=== PATIENT | female | born 1980 | race African-American/Black ===

== ENCOUNTER 2021-01-23 14:14 | Emergency (ER) | payer OTHER, SELFPAY ==
--- NOTE | 2021-01-23 | ECG_ITS ---
Measurements Intervals [place] Rate: 74 P: 58 [place]: 169 QRS: 50 QRSD: 89 T: 43 QT: 380 QTc: 422 Interpretive Statements SINUS RHYTHM POSSIBLE LEFT ATRIAL ENLARGEMENT BASELINE WANDER- V4 BORDERLINE ECG Electronically Signed On 01-23-2021 14:54:53 CDT by Rene Driscoll D.O.
--- NOTE | ~2021-01-23 | XR_ITS ---
EXAMINATION: XR chest 2V EXAM DATE: 01/23/2021 14:38 INDICATION: Chest pain and tightness. Symptoms one day. TECHNIQUE: Frontal and lateral projections of the chest obtained and reviewed. There is no prior richar dy for comparison. FINDINGS: The lungs are clear. There are no pleural effusions. The cardiomediastinal silhouette is within normal limits. There is no pneumothorax suspected. The bones and soft tissues are unremarkab le. IMPRESSION: No acute cardiopulmonary findings. Reviewed, dictated and finalized at location A.
[2021-01-23 14:13] VITALS: PULSE 80; RESP 16; TEMP 36.7; O2SAT 98
[2021-01-23 14:16] VITALS: PULSE 74
[2021-01-23 14:31] LABS: Basophils Percent Auto 0.6 % (0.2-1.2); Eosinophils Absolute Auto 0.2 K/mm3 (0-0.3); Eosinophils Percent Auto 2.1 % (0-4.4); Hematocrit 32.5 % (37.0-47.0); Hemoglobin 10.5 g/dL (12.0-15.0); Immature Granulocyte Absolute 0.02 K/mm3 (0.00-0.031); Immature Granulocyte Percent A 0.3 % (0-0.5); Lymphocytes Absolute Auto 1.59 K/mm3 (0.9-3.2); Lymphocytes Percent Auto 22.6 % (18.3-44.2); Mean Corpuscular HGB Conc 32.3 g/dl (32-36); Mean Corpuscular Hemoglobin 27.2 pg (26-34); Mean Corpuscular Volume 84.2 fl (80-100); Mean Platelet Volume 11.6 fl (7.4-10.4); Monocytes Absolute Auto 0.4 K/mm3 (0.1-0.6); Monocytes Percent Auto 5.2 % (2.6-8.5); Neutrophils Absolute Auto 4.9 K/mm3 (1.3-6.7); Neutrophils Percent Auto 69.2 % (45.5-73.1); Platelet Count Result 229 k/mm3 (150-375); Red Blood Count 3.86 M/mm3 (4.2-5.4); Red Cell Distribution Width 13.9 % (11.5-14.5); White Blood Count 7.1 K/mm3 (4.5-10.0)
[2021-01-23 14:41] LABS: INR 0.9; Partial Thromboplastin Time 26.2 SECONDS (22.3-36.8); Prothrombin Time 12.5 Seconds (11.1-14.7)
[2021-01-23 15:00] LABS: Anion Gap 9 mmol/L (8-16); Blood Urea Nitrogen 11 mg/dL (7-17); Carbon Dioxide 24 mmol/L (22-30); Chloride 106 mmol/L (98-107); Estimated CRCL calculation 72 ml/min; Estimated Glomerular Filt Rate > 60; Glucose 99 mg/dL (65-110); Potassium 3.7 mmol/L (3.4-5.0); Sodium 139 mmol/L (137-145)
--- NOTE | 2021-01-23 15:06 | ED.GENADULT ---
HPI - General Adult General Chief complaint: Chest Pain Stated complaint: chest pain with sob Time Seen by Provider: 01/23/21 14:14 Source: patient History of Present Illness HPI narrative: Patient is a 40 y/o female complaining of mid sternal chest pain starting 2 hours ago. She describes her pain as sharp and rates it as 10/10 initially, but 5/10 currently. There is no pain radiation. There is no alleviating or exacerbating factor. However, her pain is decreasing spontaneously. She has some cough and SOB. Related Data Allergies Allergy/AdvReac Type Severity Reaction Status Date / Time acetaminophen [From Tylenol] Allergy Swelling Verified 01/23/21 14:29 Review of Systems Constitutional: Constitutional: Denies chills, Denies fever(s), Denies headache(s) and Denies weakness Eyes: Eyes: Denies blurry vision ENT: Denies headache(s) and Denies neck pain Cardiovascular: Cardiovascular: Reports chest pain and Reports dyspnea Respiratory: Respiratory: Reports cough and Reports dyspnea Gastrointestinal: Gastrointestinal: Denies abdominal pain, Denies diarrhea, Denies nausea and Denies vomiting Genitourinary: Genitourinary: Denies hematuria and Denies dysuria Musculoskeletal: Musculoskeletal: Denies back pain and Denies neck pain Neurologic: Denies headache(s) and Denies weakness Exam Const: General: no acute distress and well developed Orientation/consciousness: oriented to person, oriented to place, oriented to time and patient oriented x3 HENMT: Head: normocephalic Ears: external ears normal General nose exam: Normal external nose present Eyes: General: appearance normal, both eyes and all related structures Conjunctivae: conjunctivae normal Neck: Neck: normal visual inspection and full ROM Chest: Chest palpation & inspection: normal inspection of the chest and no tenderness Resp: Effort & Inspection: normal respiratory effort Auscultation: clear to auscultation bilaterally Cardio: Rate: regular rate Rhythm: regular rhythm GI: GI Palp: No abdominal tenderness and Yes Soft to palpation Skin: General skin exam: normal color and turgor normal Neuro: General: oriented to person, oriented to place, oriented to time and patient oriented x3 Cognition (Neuro): normal cognition Extrem: General: normal to inspection, full ROM and no pedal edema Psych: Appearance: grossly normal Mental Status: mental status grossly normal Affect: normal affect Course Vital Signs Vital signs: Vital Signs Temperature 36.7 C 01/23/21 14:13 Pulse Rate 80 01/23/21 14:13 Respiratory Rate 16 01/23/21 14:13 Pulse Oximetry 98 01/23/21 14:13 Temperature 36.7 C 01/23/21 14:13 Pulse Rate 67 01/23/21 16:45 Respiratory Rate 21 H 01/23/21 16:45 Blood Pressure 161/97 H 01/23/21 16:45 Pulse Oximetry 99 01/23/21 16:45 Medical Decision Making Vital Signs Vital Signs: Vital Signs Temperature 36.7 C 01/23/21 14:13 Pulse Rate 80 01/23/21 14:13 Respiratory Rate 16 01/23/21 14:13 Pulse Oximetry 98 01/23/21 14:13 Temperature 36.7 C 01/23/21 14:13 Pulse Rate 67 01/23/21 16:45 Respiratory Rate 21 H 01/23/21 16:45 Blood Pressure 161/97 H 01/23/21 16:45 Pulse Oximetry 99 01/23/21 16:45 Lab Data Result diagrams: 01/23/21 14:24 01/23/21 14:24 Labs: Lab Results 01/23/21 01/23/21 01/23/21 Range/Units 14:24 14:24 14:24 WBC 7.1 (4.5-10.0) K/mm3 RBC 3.86 L (4.2-5.4) M/mm3 Hgb 10.5 L (12.0-15.0) g/dL Hct 32.5 L (37.0-47.0) % MCV 84.2 (80-100) fl MCH 27.2 (26-34) pg MCHC 32.3 (32-36) g/dl RDW 13.9 (11.5-14.5) % Plt Count 229 (150-375) k/mm3 MPV 11.6 H (7.4-10.4) fl Immature Gran % (Auto) 0.3 (0-0.5) % Neut % (Auto) 69.2 (45.5-73.1) % Lymph % (Auto) 22.6 (18.3-44.2) % [place] % (Auto) 5.2 (2.6-8.5) % Eos % (Auto) 2.1 (0-4.4) % Baso % (Auto) 0.6 (0.2-1.2) % Lymph #
--- NOTE | 2021-01-23 15:11 | PC.NURSE ---
Called lab and spoke to Bear to add on D-Dimer
[2021-01-23 15:12] LABS: Troponin I < 0.012 ng/mL (0.000-0.034)
[2021-01-23 15:16] VITALS: BP 128/81; PULSE 78; RESP 18; O2SAT 96
[2021-01-23 15:57] LABS: Add Urine Microscopic? YES; Appearance Urine Clear (Clear); Bacteria Urine Trace /hpf; Bilirubin Urine Negative (Negative); Blood Urine Negative (Negative); Color Urine Yellow (Yellow); Glucose Urine UA Negative (Negative); Ketones Urine Negative (Negative); Leukocyte Esterase Ur 2+ LEU/UL (Negative); Mucus Urine Heavy /lpf; Nitrate Urine Negative (Negative); Protein Urine 1+ mg/dL (Negative); Squamous Epithelial Cell Urine Few /hpf (Few); WBC Urine 31-50 /hpf
[2021-01-23 15:59] LABS: Specific Grav Ur 1.031 (1.001-1.035)
[2021-01-23 16:07] LABS: Amphetamine Screen Urine Negative (Negative); Barbiturate Screen Urine Negative (Negative); Benzodiazepines Screen Urine Negative (Negative); Cannabinoid Screen Urine Negative (Negative); Cocaine Screen Urine Negative (Negative); Methadone Screen Urine Negative (Negative); Opiate Screen Urine Negative (Negative); Phencyclidine Screen Urine Negative (Negative)
[2021-01-23 16:36] LABS: D Dimer 0.27 ug/mL (<0.48)
[2021-01-23 16:45] VITALS: BP 161/97; PULSE 67; RESP 21; O2SAT 99
== END 2021-01-23 18:06 | disposition home or self-care (01) ==
PROVIDERS: Emergency Medicine; Emergency Provider Emergency Medicine
DX: R07.2 Precordial pain (principal); R94.31 Abnormal electrocardiogram [ECG] [EKG]
CPT/HCPCS: 36415; 71046; 80048; 80307; 81001; 81025; 84484; 85025; 85380; 85610; 85730; 87086; 93005; 99284